=== PATIENT | female | born 1980 | race Caucasian/White ===

== ENCOUNTER → 2021-08-01 11:21 | Outpatient (CLI) | payer SELFPAY ==
--- NOTE | 2022-07-05 15:40 | EXP.ACUTE.PN ---
Subjective *Date: 07/05/22 *Time: 15:40 Medical Exam Head: atraumatic ENT: normal oropharynx
== END ==
DX: I10 Essential (primary) hypertension (principal)
CPT/HCPCS: 36415

== ENCOUNTER → 2022-12-27 09:11 | Day surgery (SDC) | payer OTHER, SELFPAY ==
[2023-08-19 12:23] VITALS: BMI 13.5
[2023-08-19 12:42] VITALS: BP 120/70; PULSE 77; RESP 15; TEMP 36.7; O2SAT 99
== END ==
PROVIDERS: PCP Emergency Medicine; Visit Provider Emergency Medicine
DX: Z00.00 Encounter for general adult medical examination without abnormal findings (principal)

== ENCOUNTER → 2023-03-11 10:40 | Outpatient (POV) | payer OTHER, SELFPAY ==
--- NOTE | 2023-06-07 11:10 | EXP.COCOPNOT ---
Date of procedure: 06/07/23 Pre-op Diagnosis:: diagnostic colonoscopy Post-op Diagnosis:: colon polyps Procedure performed:: colonoscopy Surgeon:: Anastasia Ramirez [employer] HAND:: Travis Edge Anesthesia: GETA Estimated blood loss (mL): 20 Operative findings:: polyps Operative note:: patient was taken to procedure room and colonoscopy performed, polyps present in transverse colon. Condition: stable Disposition: PACU Complications:: none Axillary Lymph Node Dissection Axillary Lymph Node Dissection Operation performed with curative intent: Yes Resection within axillary vein, chest wall, latissimus dorsi: Yes Nerves identified and preserved during dissection: Long thoracic nerve Level III nodes were removed: Yes (with explanation) Breast Cancer [facility] [place] Node Biopsy Operation performed with curative intent: Yes Tracers used in non-neoadjuvant setting to identify nodes: Radioactive tracer Tracer used to identify nodes in neoadjuvant setting: Dye All significantly radioactive nodes were removed: Yes All palpably suspicious nodes were removed: No (with explanation) Colon Resection Synoptic Operative Report Tumor location: Cecum Extent of colon and vascular resection: Right hemicolectomy Primary Cutaneous Melanoma WLE Wide Local Excision Operation performed with curative intent: Yes Clinical margin width (edge of lesion to excision scar): 0.5 cm
--- NOTE | 2023-06-07 11:22 | EXP.COCOPNOT ---
Date of procedure: 06/07/23 Pre-op Diagnosis:: test Post-op Diagnosis:: test Procedure performed:: test Surgeon:: Account Provider, BELLO Anesthesia: MAC Estimated blood loss (mL): 8 Operative findings:: etdstg Operative note:: teat Condition: stable Disposition: PACU Complications:: fe a
--- NOTE | 2023-10-09 11:16 | P.PCN_ITS ---
Procedure Anesthesiologist:: John Garza CRNA Complications:: None
--- NOTE | 2023-10-09 11:16 | EXP.PAIN.PRO ---
Procedure Anesthesiologist:: oJhn Garza CRNA Complications:: None
== END ==
PROVIDERS: Visit Provider Nurse Practitioner Family
DX: Z00.00 Encounter for general adult medical examination without abnormal findings (principal)

== ENCOUNTER 2023-11-15 10:37 | Outpatient (CLI) | payer BC, SELFPAY ==
--- NOTE | 2024-01-21 15:20 | EXP.PAIN.OV ---
HPI Data of Consult Requesting Physician: Fahad Peralta MD Primary Care Provider: Fahad Peralta MD Consult Narrative History of present illness: Ms. Oconnor is a 43 year old female CC: Fahad Peralta MD [facility] Disclaimer: The information contained in this section may have been updated after the patient was seen, as this information can be updated by other users. Medical History COPD (chronic obstructive pulmonary disease) case management patient Surgical History H/O: hysterectomy Family History Other Family history of cancer Social History Smoking Status: Current every day smoker tobacco type: cigarettes alcohol intake: current current occupational status: unemployed Travel in the last 8 weeks: None Meds Home Medications and Allergies Home Medications Medication Instructions Recorded Confirmed Type Montelukast Sodium 10 mg PO DAILY Asthma 01/23/21 01/01/24 History atenolol 25 mg tablet 25 mg PO Q12HP PALPITATIONS 11/27/21 01/01/24 History fluticasone propionate 50 2 spray IN Q12HP ALLERGIES 11/27/21 01/01/24 History mcg/actuation nasal spray,suspension hydrochlorothiazide 25 mg tablet 25 mg PO QPMWITHMEAL 11/27/21 01/01/24 History sertraline 100 mg tablet 100 mg PO QPMWITHMEAL depression 11/27/21 01/01/24 History fluoxetine 20 mg capsule (Prozac) 20 mg PO DAILY #30 caps 04/03/23 01/01/24 Rx lisinopril 5 mg tablet 5 mg PO DAILY 10/08/23 01/01/24 History ibuprofen 800 mg tablet 800 mg PO Q8H 01/01/24 01/01/24 History New Prescriptions to Start Prescriptions: Allergies Allergy/AdvReac Type Severity Reaction Status Date / Time Penicillins AdvReac Verified 01/01/24 06:27 Assessment and Plan *Assessment and plan (1) Chest pain: Status: Acute Category: Medical Code(s): R07.9 - Chest pain, unspecified
== END 2023-11-15 23:59 ==
LOC: RAD 10:38
PROVIDERS: PCP Emergency Medicine; Visit Provider Emergency Medicine
DX: Z12.31 Encounter for screening mammogram for malignant neoplasm of breast (principal)
CPT/HCPCS: 77063; 77067